=== PATIENT | male | born 1995 | race Caucasian/White ===

== ENCOUNTER 2019-03-03 14:10 | Emergency (ER) | payer SELFPAY ==
--- NOTE | 2019-03-03 14:57 | EDM.PDOC ---
ED HPI GENERAL MEDICAL PROBLEM - General Chief Complaint: Abdominal Pain Stated Complaint: LOWER ABDOMEN PAIN Time Seen by Provider: 03/03/19 14:42 Source of Information: Reports: Patient History Limitations: Reports: No Limitations - History of Present Illness INITIAL COMMENTS - FREE TEXT/NARRATIVE: This patient is a 23 year old male that presents to the ER. Patient reports that about 3 hours ago he began having umbilical abdominal pain. Patient reports the pain has stayed in the same location. Patient reports that the pain comes and goes. Patient reports that when the pain began he had one episode of diarrhea. Patient reports that did do some drinking this weekend. Patient does report some nausea. The patient states during my examination that he has 0/10 pain. Onset: Today Onset Date: 03/03/19 Onset Time: 12:00 Location: Reports: Abdomen Quality: Reports: Ache Severity: Mild Improves with: Reports: None Worsens with: Reports: None Associated Symptoms: Reports: Nausea/Vomiting. 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 [No Known Home Meds] 03/03/19 [History] Past Medical History Psychiatric History: Reports: Anxiety, Panic Attack Social & Family History - Tobacco Use Smoking Status *Q: Current Every Day Smoker Years of Tobacco use: 5 Packs/Tins Daily: 1 - Caffeine Use Caffeine Use: Reports: Soda, Tea - Alcohol Use Days Per Week of Alcohol Use: 2 Number of Drinks Per Day: 6 Total Drinks Per Week: 12 Date of Last Drink: 03/03/19 Time of Last Drink: 05:00 - Recreational Drug Use Recreational Drug Use: No ED ROS GENERAL - Review of Systems Review Of Systems: See Below Constitutional: Reports: No Symptoms HEENT: Reports: No Symptoms Respiratory: Reports: No Symptoms Cardiovascular: Reports: No Symptoms Endocrine: Reports: No Symptoms GI/Abdominal: Reports: Abdominal Pain (umbilicus when it was present. ), Diarrhea (x1), Nausea. Denies: Vomiting : Reports: No Symptoms Musculoskeletal: Reports: No Symptoms Skin: Reports: No Symptoms Neurological: Reports: No Symptoms Psychiatric: Reports: No Symptoms Hematologic/Lymphatic: Reports: No Symptoms Immunologic: Reports: No Symptoms ED EXAM, GI/ABD - Physical Exam Exam: See Below Exam Limited By: No Limitations General Appearance: Alert, WD/WN, No Apparent Distress Eyes: Bilateral: Normal Appearance Ears: Normal External Exam, Normal Canal, Hearing Grossly Normal, Normal TMs Nose: Normal Inspection, Normal Mucosa, No Blood Throat/Mouth: Normal Inspection, Normal Lips, Normal Teeth, Normal Gums, Normal Oropharynx, Normal Voice, No Airway Compromise Head: Atraumatic, Normocephalic Neck: Normal Inspection, Supple, Non-Tender, Full Range of Motion Respiratory/Chest: No Respiratory Distress, Lungs Clear, Normal Breath Sounds, No Accessory Muscle Use, Chest Non-Tender Cardiovascular: Normal Peripheral Pulses, Regular Rate, Rhythm, No Edema, No Gallop, No JVD, No Murmur, No Rub GI/Abdominal Exam: Normal Bowel Sounds, Soft, Non-Tender (no tenderness of exam) , No Organomegaly, No Distention, No Abnormal Bruit, No Mass, Pelvis Stable. No : Distended, Guarding, Rigid, Rebound, Abnormal Bowel Sounds, Hernia, Mass, Hepatomegaly, Splenomegaly Back Exam: Normal Inspection, Full Range of Motion. No: CVA Tenderness (L), CVA Tenderness (R) Extremities: Normal Inspection, Normal Range of Motion, Non-Tender, No Pedal Edema, Normal Capillary Refill Neurological: Alert, Oriented, Normal Cognition, Normal Gait, No Motor/Sensory Deficits Psychiatric: Normal Affect, Normal Mood Skin Exam: Warm, Dry, Intact, Normal Color, No Rash Lymphatic: No Adenopathy Course - Vital Signs Last Recorded V/S: Last Vital Signs Temp 99.6 F 03/03/19 14:27 Pulse 59 L 03/03/19 14:27 Resp 18 03/03/19 14:27 BP 119/75 03/03/19 14:27 Pulse Ox 98 03/03/19 14:27 - Orders/Labs/Meds Labs: Laboratory Tests 03/03/19 03/03/19 03/03/19 Range/Units 14:54 14:54 15:10 WBC 9.3 (5.0-10.0) 10^3/uL RBC 5.11 (4.50-6.00) 10^6/uL Hgb 15.5 (14.0-18.0) g/dL Hct 45.8 (40.0-54.0) % MCV 89.6 (82.0-94.0) fL MCH 30.3 (27.0-32.0) pg MCHC 33.8 (33.0-38.0) g/dL RDW Coeff of Ramona 13.7 (11.0-15.0) % Plt Count 224 (150-400) 10^3/uL Neut % (Auto) 75.6 (35-85) % Lymph % (Auto) 16.2 (10-55) % Parke % (Auto) 6.4 (0-16) % Eos % (Auto) 1.7 (0-5) % Baso % (Auto) 0.1 (0-3) % Neut # (Auto) 7.01 H (1.80-7.00) 10^3/uL Lymph # (Auto) 1.50 (1.00-4.80) 10^3/uL Parke # (Auto) 0.59 (0.00-0.80) 10^3/uL Eos # (Auto) 0.16 (0.00-0.45) 10^3/uL Baso # (Auto) 0.01 10^3/uL POC Sodium 145 (138-146) mmol/L POC Potassium 4.1 (3.5-4.9) mmol/L POC Chloride 105 (98-109) mmol/L POC Total CO2 25 (21-32) mmol/L POC BUN 5 L (8-26) mg/dL POC Creatinine 1.0 (0.6-1.3) mg/dL POC Glucose 104 H (70-99) mg/dL POC WB Ioniz Calcium 1.2 (1.12-1.32) Urine Color Yellow (YELLOW) Urine Appearance Clear (CLEAR) Urine pH 8.5 H (4.5-8.0) Ur Specific [place] 1.020 (1.003-1.020) Urine Protein Negative (NEGATIVE) mg/dL Urine Glucose (UA) Negative (NEGATIVE) mg/dL Urine Ketones Negative (NEGATIVE) mg/dL Urine Occult Blood Negative (NEGATIVE) Urine Nitrite Negative (NEGATIVE) Urine Bilirubin Negative (NEGATIVE) Urine Urobilinogen 0.2 (0.2-1.0) EU/dL Ur Leukocyte Esterase Negative (NEGATIVE) Urine RBC Not seen (0-5) /HPF Urine WBC Not seen (0-5) /HPF - Re-Assessments/Exams Free Text/Narrative Re-Assessment/Exam: 03/03/19 15:02 Chem machine is out of order in [facility]. I ordered a BMP, instead of CMP. 03/03/19 15:17 Labs are unremarkable. No elevation in wbc. no vomiting, no abdominal tenderness. Very low suspicion for appendicitis, appendicitis unlikely. Balbuena score is 3. 03/03/19 15:37 Patient after revalauation still has no pain, no abdominal tenderness. Patient reports he is [place] to [place] [employer] [place]. Will discharge. Patient is educated that his labs and exam do not indicate ct scan for appendicitis. He is educated when to return, he voices back understanding. Departure - Departure Time of Disposition: 15:38 Disposition: Home, Self-Care 01 Condition: Good Clinical Impression: Abdominal pain Qualifiers: Abdominal location: periumbilical Qualified Code(s): R10.33 - Periumbilical pain - Discharge Information *PRESCRIPTION DRUG MONITORING PROGRAM REVIEWED*: No *COPY OF PRESCRIPTION DRUG MONITORING REPORT IN PATIENT SAHRA: No Instructions: Abdominal Pain, Adult Referrals: PCP,None [Primary Care Provider] - Forms: ED Department Discharge Additional Instructions: Followup with your primary care provider as needed Return to the ER if you start running fever, increase in pain, vomiting, or any other concerns. Increase fluids Rest No alcohol - Assessment/Plan Plan: PLEASE SEE RN NOTE FOR PFSH.
== END 2019-03-03 15:50 | disposition home or self-care (01) ==
LOC: CC.ED 14:10
DX: R10.33 Periumbilical pain (principal); F17.210 Nicotine dependence, cigarettes, uncomplicated
CPT/HCPCS: 36415; 80047; 81001; 85025; 99283